=== PATIENT | female | born 1970 ===

== ENCOUNTER 2017-08-03 09:37 | Day surgery (SDC) | payer OTHER ==
[~2017-08-03 09:37] MED LIST: Buffered Lidocaine 0.9% SYRIN* 5 ML/SYR SYRINGE INTRADERM ONE; Dexamethasone IV* 4 MG/ML 1 ML (4 MG) IV SLOW PU ONE; DiMENhydriNATE IV* 50 MG/ML VIAL IV PUSH ONE; Famotidine IV* 10 MG/ML 2 ML (20 mg) IV ONE; Scopolamine 1.5 mg* PATCH TRANSDERM ONE
[2017-08-03] MEDS ORDERED: Famotidine IV* 10 MG/ML 2 ML (20 mg) ONE (09:58)
[2017-08-03] MEDS ORDERED: Dexamethasone IV* 4 MG/ML 1 ML (4 MG) ONE (09:58)
[2017-08-03] MEDS ORDERED: Scopolamine 1.5 mg* PATCH ONE (09:59)
[2017-08-03] MEDS ORDERED: fentaNYL* 50 MCG/ML 2 ML VIAL (100 MCG VIAL) ONE (10:40)
[2017-08-03] MEDS ORDERED: Midazolam* 1 MG/ML 2 ML VIAL (2 MG) ONE (10:40)
[2017-08-03] MEDS ORDERED: Bacitracin OINTMENT* 0.5% 0.5 oz TUBE ONE (10:42)
[2017-08-03] MEDS ORDERED: Oxymetazoline 0.05% NASAL SPR* 15 ML BTL ONE (10:42)
[2017-08-03] MEDS ORDERED: Lidocaine 4% TOPICAL* 50 ML TOP.SOLN ONE (10:42)
[2017-08-03] MEDS ORDERED: Lidocain 1% EPI 1:100,000 * 30 ML MDV ONE (10:42)
[2017-08-03] MEDS ORDERED: DiMENhydriNATE IV* 50 MG/ML VIAL ONE (11:06)
[2017-08-03] MEDS ORDERED: Ketorolac INJ* 30 MG/ML 1 ML VIAL IV PRN (11:25)
[2017-08-03] MEDS ORDERED: Naloxone* 0.4 MG/ML 1 ML VIAL IV PRN (11:25)
[2017-08-03] MEDS ORDERED: Ondansetron ODT TAB* 4 MG PO PRN (11:25)
[2017-08-03 12:06] VITALS: BP 133/87
--- NOTE | 2017-08-04 12:05 | OP ---
DATE OF OPERATION: 08/03/17 - SDS DATE OF : 72. SURGEON: David Chacon MD. PRE-OP DIAGNOSIS: Inferior turbinate hypertrophy. POST-OP DIAGNOSIS: Inferior turbinate hypertrophy. OPERATIVE PROCEDURE: Bilateral submucous resection of the inferior turbinates under general laryngeal mask air anesthesia. COMPLICATIONS: None. DISPOSITION: Good. SPECIMENS: None. ESTIMATED BLOOD LOSS: Minimum. DESCRIPTION OF PROCEDURE: The patient was taken to the operating room, placed in the supine position on the operating table, maintained with laryngeal mask airway anesthesia. Her nose was packed bilaterally with cottonoids impregnated with oxymetazoline and 4% lidocaine. After several minutes these were removed and inferior turbinates were injected with 1% lidocaine and 1:100,000 epinephrine. An incision was made in the anterior aspect of the inferior turbinates. Maverick elevator was used to make a elevate the mucosa off the underlying bone. A turbinate debrider was inserted into the submucosal pocket and the submucosa was debrided. The turbinates were then outfractured, hemostasis was assured. The patient tolerated this well with no complications, transferred to Recovery in stable condition. [id number] #: [id number] [facility] CENTERJoe
== END 2017-08-03 12:21 | disposition home or self-care (01) ==
LOC: OR 09:37
PROVIDERS: ATTEND Otolaryngology
DX: J34.3 Hypertrophy of nasal turbinates (principal); J32.9 Chronic sinusitis, unspecified; I10 Essential (primary) hypertension; F41.8 Other specified anxiety disorders; E78.00 Pure hypercholesterolemia, unspecified; G47.33 Obstructive sleep apnea (adult) (pediatric); E03.9 Hypothyroidism, unspecified; Z87.440 Personal history of urinary (tract) infections; M79.7 Fibromyalgia
CPT/HCPCS: A9270-GY; J1100; J1240; J2250; J3010